=== PATIENT | female | born 1990 | race Caucasian/White ===

== ENCOUNTER 2021-08-13 16:20 | Emergency (ER) | payer OTHER, SELFPAY ==
--- NOTE | ~2021-08-13 | XR_ITS ---
EXAMINATION: RIGHT ANKLE, RIGHT FOOT CLINICAL INFORMATION: Pain after fall COMPARISON: None TECHNIQUE: 3 views right foot, 3 views right ankle FINDINGS: The ankle appears normal. No effusion is seen. In the foot, there is a predominantly transverse fracture involving the base of the fifth metatarsal. In addition, there is an avulsion fracture of the lateral base of the fourth metatarsal. It is less likely felt that this is a fragment from the fifth metatarsal. No other fractures seen. XR/XR foot RT min 3V IMPRESSION: Fracture base of the fifth metatarsal and most likely fourth as well.
--- NOTE | ~2021-08-13 | XR_ITS ---
EXAMINATION: RIGHT ANKLE, RIGHT FOOT CLINICAL INFORMATION: Pain after fall COMPARISON: None TECHNIQUE: 3 views right foot, 3 views right ankle FINDINGS: The ankle appears normal. No effusion is seen. In the foot, there is a predominantly transverse fracture involving the base of the fifth metatarsal. In addition, there is an avulsion fracture of the lateral base of the fourth metatarsal. It is less likely felt that this is a fragment from the fifth metatarsal. No other fractures seen. XR/XR ankle RT min 3V IMPRESSION: Fracture base of the fifth metatarsal and most likely fourth as well.
[2021-08-13 17:13] VITALS: BP 128/73; PULSE 82; RESP 16; TEMP 36.7; O2SAT 99; BMI 23.5
--- NOTE | 2021-08-13 18:17 | ED_ITS ---
HPI - Extremity Injury (Lower) General Chief Complaint: Extremity Injury, Lower Stated Complaint: fall Time Seen by Provider: 08/13/21 17:52 Source: patient Mode of arrival: ambulatory Limitations: no limitations History of Present Illness MD complaint: ankle injury, foot injury and fall Onset (ago): day(s) (Since last night) Type of Injury: other (Patient slipped and fell on her buttocks and her ankle/foot twisted someway) Place: work Severity: severe Severity scale (1-10): >10 Relieving factors: nothing Exacerbating factors: weight bearing, movement and palpation Context: fall Associated symptoms: swelling and able to partially bear weight Other symptoms: none Related Data Previous Rx's Medication Instructions Recorded acetaminophen 500 mg tablet 1,000 mg PO QID PRN #14 tab 08/13/21 (Tylenol Extra Strength) ibuprofen 800 mg tablet 800 mg PO Q8H PRN #14 tab 08/13/21 oxycodone 5 mg tablet 5 mg PO Q6H PRN #14 tab 08/13/21 Allergies Allergy/AdvReac Type Severity Reaction Status Date / Time No Known Allergies Allergy Verified 08/13/21 18:18 Review of Systems Review of Systems: Constitutional : No Weight loss, No Fever, No Chills, No Night Sweats, No Fatigue, No Malaise ENT/Mouth : No Hearing loss, No Ear Pain, No Nasal Congestion, No Sinus Pain, No Hoarseness, No sore throat, No Rhinorrhea, No Swallowing Difficulty Eyes: No Eye Pain, No Swelling, No Redness, No Foreign Body, No Discharge, No Vision Changes Cardiovascular : No Chest Pain, No SOB, No Dyspnea on Exertion, No Orthopnea, No Edema, No Palpitations Respiratory : No Cough, No Sputum, No Wheezing, No Smoke Exposure, No Dyspnea Gastrointestinal : No Nausea, No Vomiting, No Diarrhea, No Constipation, No abdominal Pain, No Hematochezia, No Melena Genitourinary : no irregular bleeding, No Dysuria, No Urinary Frequency, No Hematuria, No Urinary Incontinence, No Urgency, No Flank Pain, No Urinary Flow Changes, No Hesitancy Musculoskeletal : + right ankle/foot joint pain, No Myalgias, No Joint Swelling Skin : No Skin Lesions, No rash Neuro : No Weakness, No Numbness, No Paresthesias, No Loss of Consciousness, No Dizziness, No Headache Psych : No Anxiety/Panic, No Depression, No SI/HI/AH/VH, No Social Issues, Heme/Lymph: No Bruising, No Bleeding,No Lymphadenopathy Endocrine : No Polyuria, No Polydipsia, No Temperature Intolerance Yes all other systems are reviewed and are negative [facility] Past Medical History Attestation statement: The following information was validated with the patient. Social History Social History Patient : No Physical Exam Vital Signs: Vital Signs: Last Vital Signs Temp 98.0 F 08/13/21 17:13 Pulse 82 08/13/21 17:13 Resp 16 08/13/21 17:13 BP 128/73 08/13/21 17:13 Pulse Ox 99 08/13/21 17:13 Body Mass Index 23.5 vital signs have been reviewed as normal and appeared to be correct. Blood pressure normal Heart rate normal. Respiration rate normal. Temperature normal. Oxygen saturation normal. Appearance: Alert. Oriented X3. No acute distress. Head: Normal external exam. Normocephalic. Atraumatic. Eyes: PERRLA. EOMI. Conjunctiva and sclera normal. Eyelids normal. ENT: Pharynx normal. Uvula midline. Moist mucous membranes. Neck: Normal inspection. Neck supple. FROM. CVS: Normal heart rate and rhythm. Respiratory: No respiratory distress. Painless inspiration. Skin: Skin warm and dry. Normal skin color. Normal skin turgor. No rashes/lesions/lacerations noted. Extremities: Patient with tenderness palpation to right foot at the 4th and 5th metatarsals with moderate soft tissue swelling and tenderness to palpation. No obvious ligamentous or tendon injury. Achilles tendon is intact. Limping gait due to pain. No lower extremity edema. No calf tenderness is noted. Extremities exhibit normal range of motion and nontender. Neuro: Oriented X 3. No motor deficit. No sensory deficit. Reflexes normal. Normal steady gait. No focal neuro deficits noted. Vascular: + radial pulses/+ 2 distal pedal pulses/+2 dorsalis pedis b/l. Normal cap refill. No cyanosis noted to upper extremity nails and lower extremity toes nails. 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 She denies head injury or loss of consciousness and she is not on any blood thinners. She denies any other injuries complaints or concerns. On exam she has moderate soft tissue swelling and tenderness to palpation and ecchymosis noted. X-ray revealed a 5th metatarsal fracture therefore at this time will place in a splint and ZACKARY Martinez said they will see her in office on and provide crutches and referred to orthopedic and to return if any new or worsening symptoms. Patient understands agrees with this plan. MDM - Extremity Injury (Lower) Medical Records Attestation: I reviewed the patient's medical records. Imaging Data Right foot/ankle x-ray: Attestation: I personally reviewed and interpreted this imaging study as follows: Radiologist's impression: FINDINGS: The ankle appears normal. No effusion is seen. In the foot, there is a predominantly transverse fracture involving the base of the fifth metatarsal. In addition, there is an avulsion fracture of the lateral base of the fourth metatarsal. It is less likely felt that this is a fragment from the fifth metatarsal. No other fractures seen. XR/XR foot RT min 3V IMPRESSION: Fracture base of the fifth metatarsal and most likely fourth as well.? Procedures Orthopedic Splinting/Casting Injury #1: Side: right Lower Extremity Injury Location: ankle and foot Lower Extremity Immobilizer: posterior splint Other Orthopedic Equipment: crutches Discharge Plan Discharge Clinical Impression: Ankle sprain and strain, Closed fracture of fifth metatarsal bone, Closed fracture of fourth metatarsal bone, Work related injury Patient Disposition: Home, Self-Care Instructions: Ankle Sprain (ED), Crutch Instructions (ED), Foot Fracture in Adults (ED), Return to Work Instructions (ED), Splint Care (ED) Prescriptions: New ibuprofen 800 mg tablet 800 mg PO Q8H PRN (Reason: pain) Qty: 14 RF: 0 acetaminophen [Tylenol Extra Strength] 500 mg tablet 1,000 mg PO QID PRN (Reason: fever or pain) Qty: 14 RF: 0 oxycodone 5 mg tablet 5 mg PO Q6H PRN (Reason: pain) Qty: 14 RF: 0 Referrals: Dominick Dennison MD [Physician] - 2 days (Call tomorrow to make an appointment on ) Stand Alone Forms: Work/School Release Print Language: [place]
--- NOTE | 2021-08-13 19:29 | PC.NURSE ---
PT POSTEROR SHORT PLACED TO RIGHT LEG PT AMBULATING WELL WITH CRUTCHES.
== END 2021-08-13 19:37 | disposition home or self-care (01) ==
LOC: HO.ED 18:32
PROVIDERS: Emergency Provider Emergency Medicine; PCP Internal Medicine
DX: S92.351A Displaced fracture of fifth metatarsal bone, right foot, initial encounter for closed fracture (principal); S92.341A Displaced fracture of fourth metatarsal bone, right foot, initial encounter for closed fracture; S93.401A Sprain of unspecified ligament of right ankle, initial encounter; M25.571 Pain in right ankle and joints of right foot; W01.0XXA Fall on same level from slipping, tripping and stumbling without subsequent striking against object, initial encounter; Y93.9 Activity, unspecified; Y92.9 Unspecified place or not applicable; Y99.0 Civilian activity done for income or pay
CPT/HCPCS: 29515; 73610; 73630; 99283; 99284

== ENCOUNTER → 2021-08-15 10:36 | Outpatient (BNVA) | payer OTHER, SELFPAY | PROVIDERS: PCP Internal Medicine; Visit Provider Physician Assistant | DX: S92.351A Displaced fracture of fifth metatarsal bone, right foot, initial encounter for closed fracture (principal); S92.341A Displaced fracture of fourth metatarsal bone, right foot, initial encounter for closed fracture | CPT/HCPCS: 99202 ==

== ENCOUNTER 2021-08-29 08:48 | Outpatient (REF) | payer OTHER, SELFPAY ==
--- NOTE | ~2021-08-29 | XR_ITS ---
EXAMINATION: XR FOOT, RIGHT CLINICAL INFORMATION: Right foot pain, known metatarsal fractures. COMPARISON: 08/31/2021 right foot radiographs. TECHNIQUE: AP, lateral, and oblique views of the right foot. FINDINGS: Again seen is a nondisplaced transverse fracture of the proximal metadiaphysis of the fifth metatarsal. There is mild increased distraction and angulation. A minimally displaced transverse fracture at the lateral base of the adjacent fourth metatarsal is again seen as well without significant change. The remainder the digits are intact. The tarsal bones are normally aligned. The soft tissues are unremarkable. XR/XR foot RT min 3V IMPRESSION: 1. Minimal interval increased distraction and angulation of the proximal fifth metatarsal fracture. 2. No significant change in minimally displaced oblique fracture of the lateral base of the fourth metatarsal.
== END 2021-08-29 08:49 | disposition home or self-care (01) ==
LOC: HO.HOSX 08:48
PROVIDERS: Visit Provider Physician Assistant
DX: S92.341A Displaced fracture of fourth metatarsal bone, right foot, initial encounter for closed fracture (principal); S92.351A Displaced fracture of fifth metatarsal bone, right foot, initial encounter for closed fracture
CPT/HCPCS: 73630; 99212

== ENCOUNTER 2021-09-20 07:09 | Outpatient (REF) | payer OTHER, SELFPAY ==
--- NOTE | ~2021-09-20 | XR_ITS ---
EXAMINATION: XR FOOT, RIGHT CLINICAL INFORMATION: Fracture followup. COMPARISON: 08/29/2021 TECHNIQUE: AP, lateral, and oblique views of the right foot. FINDINGS: Stable alignment with no definite osseous bridging of the fractures at the base of the 5th and 4th metatarsals. There has been some interval cortical demineralization along the metatarsals likely representing disuse osteopenia. XR/XR foot RT min 3V IMPRESSION: No change in the appearance of the fractures of the 4th and 5th metatarsal bases. 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
== END 2021-09-20 07:10 | disposition home or self-care (01) ==
LOC: HO.HOSX 07:09
PROVIDERS: Visit Provider Physician Assistant
DX: S92.341D Displaced fracture of fourth metatarsal bone, right foot, subsequent encounter for fracture with routine healing (principal); S92.351D Displaced fracture of fifth metatarsal bone, right foot, subsequent encounter for fracture with routine healing
CPT/HCPCS: 73630; 99212

== ENCOUNTER 2021-11-04 07:54 | Outpatient (REF) | payer OTHER, SELFPAY ==
--- NOTE | ~2021-11-04 | XR_ITS ---
EXAMINATION: XR foot RT min 3V CLINICAL INFORMATION: Pain COMPARISON: 09/20/2021 foot radiographs TECHNIQUE: 3 views of the foot XR/XR foot RT min 3V FINDINGS/IMPRESSION: Redemonstration of the fractures of the base of the fourth and fifth metacarpals in unchanged alignment, with decreased conspicuity of the fracture lines and periosteal reaction which may reflect a degree of healing. No bridging bony callus formation Joint spaces are maintained. Increased demineralization again seen which may suggest disuse osteopenia. No joint effusion. Soft tissues are unremarkable.
== END 2021-11-04 07:55 | disposition home or self-care (01) ==
LOC: HO.HOSX 07:54
PROVIDERS: Visit Provider Physician Assistant
DX: M79.673 Pain in unspecified foot (principal); S92.341A Displaced fracture of fourth metatarsal bone, right foot, initial encounter for closed fracture; S92.351A Displaced fracture of fifth metatarsal bone, right foot, initial encounter for closed fracture; X58.XXXA Exposure to other specified factors, initial encounter; Y93.9 Activity, unspecified; Y92.9 Unspecified place or not applicable; Y99.8 Other external cause status
CPT/HCPCS: 73630; 99212

== ENCOUNTER 2021-12-09 08:04 | Outpatient (REF) | payer OTHER, SELFPAY ==
--- NOTE | ~2021-12-09 | XR_ITS ---
EXAMINATION: XR FOOT, RIGHT CLINICAL INFORMATION: Pain. COMPARISON: Prior x-rays latest 11/04/2021 TECHNIQUE: AP, lateral, and oblique views of the right foot. FINDINGS/findings: Redemonstrated are fractures of the base of the fourth and fifth metacarpals. Stable position and alignment. On the AP projection, there is further decrease in conspicuity of fracture planes. No new acute fractures are seen.
== END 2021-12-09 08:05 | disposition home or self-care (01) ==
LOC: HO.HOSX 08:04
PROVIDERS: Visit Provider Physician Assistant
DX: S92.341D Displaced fracture of fourth metatarsal bone, right foot, subsequent encounter for fracture with routine healing (principal); S92.351D Displaced fracture of fifth metatarsal bone, right foot, subsequent encounter for fracture with routine healing
CPT/HCPCS: 73630; 99212

== ENCOUNTER 2024-10-20 12:55 | Outpatient (REF) | payer OTHER, SELFPAY ==
[2024-10-20 14:20] LABS: OBS Int Ctl Valid YES; OBS1 NEGATIVE (NEGATIVE); OBS2 NEGATIVE (NEGATIVE); OBS3 NEGATIVE (NEGATIVE)
[2024-10-20 14:21] LABS: OBS Lot 50422
[2024-10-27 19:22] LABS: Calprotectin, Fecal <5 mcg/g
== END 2024-10-20 12:56 | disposition home or self-care (01) ==
LOC: HO.CHCLNP 12:55
PROVIDERS: Visit Provider Family Medicine
DX: K62.5 Hemorrhage of anus and rectum (principal)
CPT/HCPCS: 82270; 83993

== ENCOUNTER 2025-02-08 08:52 | Outpatient (AMB) | payer MEDICAID, SELFPAY ==
[2025-02-08 09:03] VITALS: BP 127/74; PULSE 95; O2SAT 100; BMI 25.6
--- NOTE | 2025-02-08 09:03 | A.OFFVIS_ITS ---
Vital Signs 3 02/08/25 09:03 Height 5 ft 7 in Weight 163 lb 9.328 oz BMI 25.6 BP 127/74 Blood Pressure Location Lt brachial Position Sitting Pulse 95 Pulse Source Pulse Oximeter Pulse Oximetry (%) 100 Oxygen Delivery Method Room Air Intake Visit Reasons: consult rectal bleeding Intake Note: Pt presents to the office today for c/o rectal bleeding. Pt states when she passes a stool she would she bright red blood in the toilet. Pt denies any N/V/D. Allergies No Known Allergies Allergy (Verified 02/08/25 09:05) HPI HPI consult rectal bleeding: Details: 34-year-old female here for initial evaluation of rectal bleeding. She is referred by [facility]. PMX Genital herpes Right foot metatarsal fracture * SURGICAL HISTORY Tonsillectomy * ALLERGIES: NKDA * NICO LABS: Laboratory Tests 10/17/24 10/20/24 15:45 11:50 WBC 7.4 Hgb 13.0 Hct 38.0 Plt Count 308 Estimated GFR > 60 Total Bilirubin 0.5 AST 16 ALT 11 Alkaline Phosphatase 59 Stool Occult Blood NEGATIVE TODAY'S VISIT She had sustained rectal bleeding a 2 week period about a year ago, and has had some RB every 2-3 mos. No CIC or diarrhea, no pain, no fevers, no alarm sx. She has known hemorrhoids. No anes or sed problems. She denies any cardiac problems or respiratory problems. No ID problems except genital herpes. There is no known FHX of crc or polyps. [facility] Surgical History Hx of tonsillectomy Social History (System 12/07/24 @ 15:34 by Madalyn Song) Alcohol intake: current Alcohol intake frequency: holidays/special occasions only Patient Tobacco Use Status: Never used Tobacco Current occupational status: employed Current occupation: visual design lead Gender identity: Female Review of Systems Const Denies fatigue, Denies fever(s), Denies night sweats, Denies poor appetite and Denies weight loss ENT Reports Normal hearing present, Denies dental pain, Denies dysphagia, Denies hearing loss, Denies mouth pain, Denies odynophagia, Denies throat swelling, Denies tongue swelling and Reports other (Dentition adequate) Card Reports no additional complaints Resp Reports no additional complaints GI Details: Denies abdominal pain, Denies melena, Denies bloating, Reports hematochezia, Denies constipation, Denies GI cramping, Denies dysphagia, Denies excessive flatus, Denies early satiety, Denies heartburn, Denies diarrhea, Denies nausea, Denies odynophagia, Denies vomiting and Denies hematemesis Skin/Breast Denies pruritus, Denies lesions, Denies rash and Denies jaundice Neuro Reports Normal hearing present and Denies Abnormal speech present Endo Denies fatigue Aller/Immun Denies throat swelling and Denies tongue swelling Physical Exam Const General: cooperative, no acute distress, well developed and well groomed Nutritional Appearance: average body habitus and well nourished Orientation/consciousness: oriented to person, oriented to place and oriented to time Limitations: No language barrier HEENT Head: Yes normocephalic and Yes atraumatic Eyes General: appearance normal, both eyes and all related structures Pupils: Equal, round and reactive pupils present Neck Neck: Yes normal visual inspection and Yes no lymphadenopathy Thyroid: Thyroid normal Resp Effort & Inspection: normal respiratory effort and able to speak in complete sentences Auscultation: clear to auscultation bilaterally Cardio Rate: regular rate Rhythm: regular rhythm Heart sounds: Normal, physiologic split S2 sound present Peripheral pulses: radial pulses present and posterior tibial pulses present GI Inspection: No distended and No Abdominal panniculus present Palpation (GI): Soft to palpation, nontender, no guarding, not rigid and No hepatosplenomegaly present Percussion: Yes normal to percussion Auscultation: normal bowel sounds Rectal Exam - Female: deferred Abdomen image: 2 1. BB ring Skin General skin exam: no rashes or lesions noted, turgor normal, skin not dry, no jaundice, No spider nevi and no striae Rashes: no rashes Nails: normal Neuro General: oriented to person, oriented to place and oriented to time Cranial nerves: Yes Equal, round and reactive pupils present and Yes Normal hearing present Speech: No Abnormal speech present Extrem General: Yes normal to inspection, No clubbing, No cyanosis and No edema Psych Appearance: grossly normal and well kempt Mental Status: mental status grossly normal Speech and movement: Normal speech and movement present Affect: normal affect Attitude: cooperative Thought process: Normal thought process present and not confabulating Thought content: Normal thought content present Insight: Good insight present (Psych) Judgement: Good judgement present (Psych) Assessment & Plan Assessment & Plan (1) Pre-op examination: Code(s): Z01.818 - Encounter for other preprocedural examination Category: Medical (2) Rectal bleeding: Code(s): K62.5 - Hemorrhage of anus and rectum Category: Medical (3) Hemorrhoids: Code(s): K64.9 - Unspecified hemorrhoids Category: Medical Plan She had sustained rectal bleeding a 2 week period about a year ago, and has had some RB every 2-3 mos. No CIC or diarrhea, no pain, no fevers, no alarm sx. She has known hemorrhoids. No anes or sed problems. She denies any cardiac problems or respiratory problems. No ID problems except genital herpes. There is no known FHX of crc or polyps. Coding Level of Care Code New Pt Level 3 (68168) Diagnoses Pre-op examination Z01.818 Rectal bleeding K62.5 Hemorrhoids K64.9
--- OUTSIDE RECORDS SUMMARY | 2025-02-08 09:15 | XMS_ITS | Clinical Summary ---
Author Organization [employer] Address [address] [facility] [address] [place] [address] Care Team Providers Care Core Winder Name Role Phone Anh Saab MD Primary Care Provider [phone] Allergies No known active allergies Medications minoxidil (Loniten) 2.5 MG tablet Take 0.5 tablets by mouth Once per day. 09/11/20 24 Active norethindrone ac-eth estradio (Loestrin) 1.5-30 MG-MCG tablet tablet Take 1 tablet by mouth Once per day. Active naltrexone (Depade) 25 mg split tablet Take 25 mg by mouth 2 times daily. Active topiramate (Topamax) 25 MG tablet Take 25 mg by mouth at bedtime. Weight management Active buPROPion XL (Wellbutrin XL) 150 MG 24 hr tabletIndicati ons:Anxiety TAKE 1 TABLET (150 MG) BY MOUTH ONCE PER DAY. DO NOT CRUSH, CHEW, OR SPLIT. 90 tablet 01/25/20 25 026 Active buPROPion XL (Wellbutrin XL) 150 MG 24 hr tabletIndicati ons:Anxiety Take 1 tablet (150 mg) by mouth Once per day. Do not crush, chew, or split. 30 tablet 1 12/30/19 25 025 Discontinued Active Problems Problem Noted Date Diagnosed Date Rectal bleeding 10/17/2024 Assessment & Plan (10/17/2024 3:33 PM EST): Ordering lab work for and referral to GI for further evaluation. Encounters Date Type Department Care Team Description 01/21/2025 Refill [facility] [address] [place] [address] Milla Lucero, Anxiety 01/16/2025 10:15 AM EDT Clinical Support [facility] [address] [place] [address] Yolanda Shaw, MYRA Encounter for immunization 01/16/2025 Travel 12/29/2024 Telephone [facility] [address] [place] [address] Milla Lucero, DO Med Refill 12/29/2024 Telephone [facility] [address] [place] [address] Milla Lucero, DO Med Refill 12/15/2024 1:15 PM EST Nurse Only [facility] [address] [place] [address] Yolanda Shaw RN Encounter for immunization 12/15/2024 Telephone [facility] [address] [place] [address] Anh Saab MD Medication Question (Follow up to answer medication question pt had during nurse visit) 12/15/2024 Travel from Last 3 Months Immunizations Name Administration Dates Next Due Hep B, adult 01/16/2025,12/15/2024 Tdap 02/09/2023 Family History Medical History Relation Name Comments Anxiety disorder Father Hypertension Father Kidney disease Father Anxiety disorder Mother Depression Mother Diabetes Mother Heart disease Mother Relation Name Status Comments Father Mother Social History Tobacco Use Types Packs/Day Years Used Date Smoking Tobacco: Never Passive Smoke Exposure: Never Smokeless Tobacco: Never Tobacco Cessation:Counseling Given: Not Answered Alcohol Use Standard Drinks/Week Comments Yes 0 (1 standard drink = 0.6 oz pur e alcohol) Social/iiregular Depression Answer Date Recorded Patient Health Questionnaire-9 Score 2 10/17/2024 Patient Health Questionnaire-9 Score 2 10/17/2024 Last PHQ-9: Questionnaire Data Not on file 0 10/17/2024 Housing Stability Answer Date Recorded What is your housing situation today? I have juliane pal 10/07/[address] you li ve. Do you have problems with any of the following? None of the above 10/07/2024 Food Insecurity Answer Date Recorded Within the past 12 months, y ou worried that your food would run out before you got money to buy more: Never True 10/07/2024 Within the past 12 months,th e food you bought just didn't last and you didn't have enough money to get more: Never True Transportation Answer Date Recorded In the past 12 months, has l ack of transportation kept you from medical appts, meetings, work or from getting things needed for daily living? No 10/07/2024 Utilities Answer Date Recorded In the past 12 months, has t he electric, gas, oil or water company threatened to shut off services in your home? No 10/07/2024 Depression Answer Date Recorded Patient Health Questionnaire-2 Score 1 10/17/2024 Internet Access Answer Date Recorded Internet Access Q1 Yes 10/07/2024 Internet Access Q2 Not on file 10/07/2024 Comments No Sex and Gender Information Value Date Recorded Sex Assigned at Female 04/20/2024 11:21 AM EDT Legal Sex Female 11:10 AM EDT Gender Identity Female 04/20/2024 11:21 AM EDT Sexual Orientation Straight 10/17/2024 3: 59 PM EST Last Filed Vital Signs Vital Sign Reading Time Taken Comments Blood Pressure 124/84 10/17/2024 2:41 PM EST Pulse 78 10/17/2024 2:41 PM EST Temperature 36.7 ??C (98.1 ??F) 12/15/2024 1:20 PM ES T Respiratory Rate 20 10/17/2024 2:41 PM EST Oxygen Saturation 98% 10/17/2024 2:41 PM EST Inhaled Oxygen Concentration - - Weight 74.2 kg (163 lb 9.6 oz) 10/17/2024 2:41 P M EST Height 169 cm (5' 6.54 ) 10/17/2024 2:41 PM EST Body Mass Index 25.98 10/17/2024 2:41 PM EST Plan of Treatment Upcoming Encounters Date Type Department Care Team (Late st Contact Info) Description 03/20/2025 10:15 AM EDT Clinical Support [facility] [address] [place] [address] Health Maintenance Due Date Last Done Comments Family Planning (PISQ) 2006 Pap Smear 2012 Cervical Cancer Screening 2021 HPV/Cotest 2021 Influenza Vaccine (#1) 2025 Postp oned from 06/12/2024 (Patient Refused) Hepatitis B Vaccines (3 of 3 - 19+ 3-dose series) 06/17/2025 01/16/2025, 12/15/2024 SDOH Screening 10/07/2025 10/07/2024 Alcohol/Substance Use Screening 10/17/2025 10/17/2024 COVID-19 Vaccine (1 - 2023-2 5 season) 2025 Postponed from 06/12 (Patient Refused) Depression Screening 10/17/2025 10/17/2024, 10/17/2024 Tobacco Screening 10/17/2025 10/17/2024 DTaP/Tdap/Td Vaccines (2 - T d or Tdap) 02/09/2033 02/09/2023 Zoster Vaccines (1 of 2) 2041 RSV Patients and Patients Aged 60 years or older (1 - 1-dose 75+ series) 2066 HIV Screening Completed 10/17/2024 Hepatitis C Screening Completed 10/17/2024 HIB Vaccines Aged Out No longer eligi ble based on patient's age to complete this topic HPV Vaccines Aged Out No longer eligi ble based on patient's age to complete this topic Hepatitis A Vaccines Aged Out No long er eligible based on patient's age to complete this topic IPV Vaccines Aged Out No longer eligi ble based on patient's age to complete this topic Meningococcal Vaccine Aged Out No duncan gretta eligible based on patient's age to complete this topic Pneumococcal Vaccine: Pediatrics (0 to 5 Years) and At-Risk Patients (6 to 49) Years) Aged Out No longer eligible b ased on patient's age to complete this topic RSV under 20 months Aged Out No longe r eligible based on patient's age to complete this topic Rotavirus Vaccines Aged Out No longer eligible based on patient's age to complete this topic Procedures Procedure Name Priority Date/Time Associated Diagnosis Comments HEPATITIS C AB W/REFL TO HCV RNA, QN, PCR Routine 10/17/2024 3:45 PM EST Screening due HIV 1/2 ANTIGEN/ANTIBODY, FOURTH GENERATION W/RFL Routine 10/17/2024 3:45 PM EST Screening due from Last 3 Months or Most Recently Relevant to Health Maintenance Results * Hepatitis C Antibody with Reflex to HCV, RNA, Quantitative, Real-Time PCR (10/17/2024 3:45 PM EST) Pathologist [facility] Hepatitis C Antibody Nonreactive Nonreactive [facility] Comment:Antibodies to HCV no t detected; does not exclude early acuteHCV infection. Blood Venous blood specimen / Unknown 10/17/2024 3:45 PM EST 10/17/2024 5:35 PM EST Anh Saab MD LAB BLOOD ORDERABLES Final Re sult Performing Organization Address [facility] Co de Phone Number [facility] [address] [place] [phone] * HIV-1/2 Antigen and Antibodies, Fourth Generation, with Reflexes (10/17/2024 3:45 PM EST) Pathologist [facility] HIV AB/AG Nonreactive Nonreactive [facility] Comment:HIV-1 p24 Ag and/or HIV-1/HIV-2 Ab not detected.A test result that is nonreactive does not exclude thepossibility of exposure to or infection with HIV-1 and/orHIV-2. Nonreactive results in this assay for individualswith prior exposure to HIV-1 and/or HIV-2 may be due toantigen and antibody levels that are below the limit ofdetection of this assay.The [employer] HIV Ag/Ab Combo assay result andsupplemental assay results should be interpreted inconjunction with the patient's clinical presentation,history and other laboratory results. If the results areinconsistent with clinical evidence, additional testing issuggested to confirm the result. Blood Venous blood specimen / Unknown 10/17/2024 3:45 PM EST 10/17/2024 5:35 PM EST Anh Saab MD LAB BLOOD ORDERABLES Final Re sult Performing Organization Address City/[facility] Co de Phone Number [facility] [address] [place] [phone] from Last 3 Months or Most Recently Relevant to Health Maintenance [facility] Care Teams Core Winder Relationship Specialty Start Date End Date Anh Saab MD [address] [place] [phone] PCP - General Family Medicine 10/17/24
== END 2025-02-08 09:27 | disposition home or self-care (01) ==
LOC: HO.HGI 08:53
PROVIDERS: PCP Internal Medicine; Visit Provider Nurse Practitioner
DX: K62.5 Hemorrhage of anus and rectum (principal); K64.9 Unspecified hemorrhoids
CPT/HCPCS: 99203

== ENCOUNTER → 2025-02-08 08:52 | Outpatient (BNVA) | payer MEDICAID, SELFPAY | PROVIDERS: PCP Internal Medicine; Visit Provider Nurse Practitioner | DX: Z01.818 Encounter for other preprocedural examination (principal); K62.5 Hemorrhage of anus and rectum; K64.9 Unspecified hemorrhoids | CPT/HCPCS: 99212 ==

== ENCOUNTER 2025-06-20 14:21 | Outpatient (REF) | payer MEDICAID, SELFPAY ==
--- OUTSIDE RECORDS SUMMARY | 2025-06-20 11:20 | XMS_ITS | Encounter Summary ---
Author Organization [employer] Address [address] [place] [address] Care Team Providers Care Case Manager Name Role Phone Anh Saab MD Primary Care Provider [phone] Reason for Visit * Reason Comments Cervical Cancer Screening Encounter Details Date Type Department Care Team (Latest Contact Info) Description 06/20/2025 11:20 AM EDT Procedure Visit [facility] MED & PEDS [address] [place], [place] [phone] Anh Saab MD [address] [place], [place] [phone] Cervical cancer screening (Primary Dx) Social History Tobacco Use Types Packs/Day Years Used Date Smoking Tobacco: Never Passive Smoke Exposure: Never Smokeless Tobacco: Never Alcohol Use Standard Drinks/Week Comments Yes 0 (1 standard drink = 0.6 oz pur e alcohol) Social/iiregular Depression Answer Date Recorded Patient Health Questionnaire-9 Score 2 06/05/2025 Patient Health Questionnaire-9 Score 2 06/05/2025 Last PHQ-9: Questionnaire Data Not on file 0 06/05/2025 Housing Stability Answer Date Recorded What is [...] Answer Date Recorded Patient Health Questionnaire-2 Score 2 06/05/2025 Internet Access Answer Date Recorded Internet Access Q1 Yes 10/07/2024 Internet Access Q2 Not on file 10/07/2024 Comments No Sex and Gender Information Value Date Recorded Sex Assigned at Female 04/20/2024 11:21 AM EDT Legal Sex Female 11:10 AM EDT Gender Identity Female 04/20/2024 11:21 AM EDT Sexual Orientation Straight 10/17/2024 3: 59 PM EST documented as of this encounter Last Filed Vital Signs Vital Sign Reading Time Taken Comments Blood Pressure 122/77 06/20/2025 11:29 AM EDT Pulse 78 06/20/2025 11:29 AM EDT Temperature 36.9 C (98.4 F) 06/20/2025 11:29 AM EDT Respiratory Rate 20 06/20/2025 11:29 AM EDT Oxygen Saturation 99% 06/20/2025 11:29 AM EDT Inhaled Oxygen Concentration - - Weight 69.4 kg (153 lb) 06/20/2025 11:29 AM EDT Height 169 cm (5' 6.54 ) 06/20/2025 11:29 AM EDT Body Mass Index 24.3 06/20/2025 11:29 AM EDT documented in this encounter Progress Notes * Anh Saab MD - 06/20/2025 11:20 AM EDT Images from the original note were not included. Subjective Patient ID: Gabbie Reis is a 34 y.o. female who presents for Cervical Cancer Screening. 34 y.o. female here for annual well woman preventive exam. LMP: Patient's last menstrual period was 06/01/2025 (exact date). Sexual activity: Social History Substance and Sexual Activity Sexual activity: Yes Partners: Male control/protection: OCP intention: BC method: Smoking hx: Tobacco Use: Low Risk (06/20/2025) Tobacco Smoking Tobacco Use: Never Smokeless Tobacco Use: Never Passive Exposure: Never Alcohol use hx: Social History Substance and Sexual Activity Alcohol use: Yes Comment: Social/iiregular OBHx: # 1 - Date: None, Sex: None, Weight: None, GA: None, Type: None, Apgar1: None, Apgar5: None, Living: None, Comments: None # 2 - Date: None, Sex: None, Weight: None, GA: None, Type: None, Apgar1: None, Apgar5: None, Living: None, Comments: None IPV: Denies IPV Reviewed family hx Review of patient's family history indicates: Problem: Depression Relation: Mother Name: Age of Onset: (Not Specified) Problem: Anxiety disorder Relation: Mother Name: Age of Onset: (Not Specified) Problem: Diabetes Relation: Mother Name: Age of Onset: (Not Specified) Problem: Heart disease Relation: Mother Name: Age of Onset: (Not Specified) Problem: Hypertension Relation: Father Name: Age of Onset: (Not Specified) Problem: Kidney disease Relation: Father Name: Age of Onset: (Not Specified) Problem: Anxiety disorder Relation: Father Name: Age of Onset: (Not Specified) Health Maintenance: No results found for: HMPAP , HMMAMMO , HMCOLON Review of Systems Constitutional: Negative for appetite change, fatigue and fever. HENT: Negative for congestion, postnasal drip and rhinorrhea. Eyes: Negative for discharge and redness. Respiratory: Negative for apnea, cough, chest tightness and shortness of breath. Cardiovascular: Negative for chest pain. Gastrointestinal: Negative for abdominal pain. Endocrine: Negative for polyphagia. Genitourinary: Negative for difficulty urinating, dysuria and urgency. Musculoskeletal: Negative for arthralgias. Neurological: Negative for dizziness, light-headedness, numbness and headaches. Hematological: Negative for adenopathy. Does not bruise/bleed easily. Objective 10/17/2024 2:41 PM 12/15/2024 1:20 PM 04/07/2025 10:03 AM 04/07/2025 10:35 AM 06/05/2025 1:46 PM 06/20/2025 11:29 AM Vitals Systolic 124 139 118 136 122 Diastolic 84 84 80 86 77 Heart Rate 78 88 64 78 Temp 97.4 ??F (36.3 ??C) 98.1 ??F (36.7 ??C) 98.2 ??F (36.8 ??C) 98.2 ??F (36.8 ??C) 98.4 ??F (36.9??C) Resp 20 20 20 20 Height (in) 5' 6.54 (1.69 m) 5' 6.54 (1.69 m) 5' 7.72 (1.72 m) 5' 6.54 (1.69 m) Weight (lb) 163.6 159 152.6 153 BMI 25.98 kg/m2 25.25 kg/m2 23.4 kg/m2 24.3 kg/m2 BSA (m2) 1.87 m2 1.84 m2 1.82 m2 1.8 m2 Visit Report Report Report Report Report Physical Exam Vitals reviewed. Exam conducted with a tool filer hand present. HENT: Head: Normocephalic and atraumatic. Pulmonary: Effort: Pulmonary effort is normal. Chest: Chest wall: No deformity, tenderness or crepitus. Breasts: Breasts are symmetrical. Right: Normal. No inverted nipple, mass, nipple discharge, skin change or tenderness. Left: Normal. No inverted nipple, mass, nipple discharge, skin change or tenderness. Genitourinary: Urethra: No prolapse. Vagina: Normal. Cervix: Normal. Rectum: Normal. Comments: Ectropion Musculoskeletal: Cervical back: Normal range of motion. Lymphadenopathy: Upper Body: Right upper body: No supraclavicular, axillary or pectoral adenopathy. Left upper body: No supraclavicular, axillary or pectoral adenopathy. Psychiatric: Mood and Affect: Mood normal. Assessment/Plan Problem List Items Addressed This Visit Cervical cancer screening - Primary 34 y.o. here for cervical cancer screening. Will continue monitoring following ASCCP guidelines. Relevant Orders Pap Smear HPV High Risk with Reflex to Subtypes documented in this encounter Miscellaneous Notes * Assessment & Plan Note - Anh Saab MD - 06/20/2025 12:09 PM EDT Associated Problem(s): Cervical cancer screening 34 y.o. here for cervical cancer screening. Will continue monitoring following ASCCP guidelines. documented in this encounter Plan of Treatment Scheduled Orders Name Type Priority Associated Diagnoses Orde r Schedule Pap Smear Pathology and Cytology Routine Cervical cancer screening Ordered: 06/20/2025 HPV High Risk with Reflex to Subtypes Lab Routine Cervical cancer screening Ordered: 06/20/2025 documented as of this encounter Visit Diagnoses Diagnosis Cervical cancer screening- Primary Screening for malignant neoplasm of the cervix documented in this encounter Additional Health Concerns Assessment Noted Time PHQ-9 Depression Total Score: 2 06/05/20 2:24 PM EDT documented as of this encounter Care Teams Case Manager Relationship Specialty Start Date End Date Anh Saab MD [address] [place] [id number] PCP - General Family Medicine 10/17/24 documented as of this encounter
--- OUTSIDE RECORDS SUMMARY | 2025-06-20 16:56 | XMS_ITS | Encounter Summary ---
Author Organization [employer] Address [address] [place] [address] Care Team Providers Care Wrapping Clerk Name Role Phone Anh Saab MD Primary Care Provider [phone] Encounter Details Date Type Department Care Team ([facility] st Contact Info) Description 06/19/2025 Telephone [facility] MED [facility] PEDS [address] [place], [place] [phone] Anh Saab MD [address] [place] [address] Social History Tobacco Use Types Packs/Day Years [...] 11:21 AM EDT Sexual Orientation Straight 10/17/2024 3 :59 PM EST documented as of this encounter Miscellaneous Notes * Telephone Encounter - Bernie Ibanez [place] - 06/19/2025 11:52 AM EDT ERROR documented in this encounter Plan of Treatment Not on file documented as of this encounter Visit Diagnoses Not on filedocumented in this encounter Additional Health Concerns Assessment Noted Time PHQ-9 Depression Total Score: 2 06/05/20 25 2:24 PM EDT documented as of this encounter Care Teams Wrapping Clerk Relationship Specialty Start Date End Date Ahn Saab MD [address] [place] [address] PCP - General Family Medicine 10/17/24 documented as of this encounter
--- OUTSIDE RECORDS SUMMARY | 2025-06-20 16:56 | XMS_ITS | Clinical Summary ---
Author Organization [employer] Address [address] [facility] 7[address] [place] [address] Care Team Providers Care Dialysis Tech Name Role Phone Anh Saab MD Primary Care Provider [phone] Allergies No known active allergies Medications minoxidil (Loniten) 2.5 MG tablet Take 0.5 tablets by mouth Once per day. 09/11/20 24 Active GaviLyte-G 236 g solution PLEASE SEE ATTACHED FOR DETAILED DIRECTIONS 02/09/20 25 Active Bisacodyl EC 5 MG EC tablet TAKE 2 TABLETS BY MOUTH AT BEDTIME FOR 2 DAYS 02/09/20 25 Active cyanocobalamin (Vitamin B-12) 1000 MCG tablet Take 1 tablet (1,000 mcg) by mouth Once per day. 90 tablet 1 04/07/20 25 Active topiramate (Topamax) 50 MG tablet Take 1 tablet (50 mg) by mouth at bedtime. 90 tablet 1 04/07/20 25 Active naltrexone (Depade) 50 MG tablet Take 1 tablet (50 mg) by mouth Once per day. 90 tablet 1 04/07/20 25 Active metFORMIN XR (Glucophage-XR ) 500 MG 24 hr tablet Take 1 tablet (500 mg) by mouth with evening meal. Do not crush, chew, or split. 30 tablet 11 04/17/20 25 026 Active propranolol (Inderal) 10 MG tablet TAKE 1 TABLET BY MOUTH IF NEEDED IN THE MORNING AND AT BEDTIME FOR ANXIETY. 180 tablet 1 05/01/20 25 Active norethindrone- ethinyl estradiol (Junel FE 10/31) 1-20 MG-MCG tablet Take 1 tablet by mouth Once per day. 28 tablet 12 06/05/20 25 026 Active buPROPion XL (Wellbutrin XL) 150 MG 24 hr tablet Take 1 tablet (150 mg) by mouth Once per day. Do not crush, chew, or split. 90 tablet 1 06/05/20 Active norethindrone ac-eth estradio (Loestrin) 1.5-30 MG-MCG tablet tablet Take 1 tablet by mouth Once per day. 025 Discontinued buPROPion SR (Wellbutrin SR) 150 MG 12 hr tablet Take 1 tablet (150 mg) by mouth 2 times daily. Do not crush, chew, or split. 180 tablet 1 04/07/20 025 Discontinued(Th erapy completed) Active Problems Problem Noted Date Diagnosed Date Cervical cancer screening 06/20/2025 Assessment & Plan (06/20/2025 12:09 PM EDT): 34 y.o. here for cervical cancer screening. Will continue monitoring following ASCCP guidelines. Overweight (BMI 25.0-29.9) 04/07/2025 Assessment & Plan (04/07/2025 2:47 PM EDT): Patient had been started on medication management of weight, currently stable. Will need cont med to avoid rebound of weight. Anxiety 04/07/2025 Assessment & Plan (04/07/2025 2:48 PM EDT): Kiron of propranolol Rectal bleeding 10/17/2024 Assessment & Plan (10/17/2024 3:33 PM EST): Ordering lab work for and referral to GI for further evaluation. Encounters Date Type Department Care Team Description 06/20/2025 11:20 AM EDT Procedure Visit [facility] [address] [facility] [place] [address] Anh Saab MD Cervical cancer screening (Primary Dx) 06/20/2025 Travel 06/19/2025 Telephone [facility] [address] [facility] [place] [address] Anh Saab MD 06/05/2025 1:45 PM EDT Office Visit [facility] [address] [facility] [place] [address] Anh Saab MD Overweight (BMI 25.0-29.9) (Primary Dx); Encounter for initial prescription of contraceptive pills 06/05/2025 Travel 05/26/2025 Patient Outreach [facility] [address] [place] [phone] Anh Saab MD Pre-visit Planning (SDOH screening negative and Tobacco screening negative) 05/25/2025 Telephone [facility] [address] [place] [address] Anh Saab MD chart prep 04/29/2025 Refill [facility] [address] [place] [address] Anh Saab MD 04/17/2025 Telephone [facility] [address] [place] [address] Anh Saab MD Prior Authorization 04/17/2025 Orders Only [facility] [address] [place] [address] Bassem Rosenbaum MD 04/07/2025 9:45 AM EDT Office Visit [facility] [address] [place] [address] Anh Saab MD Encounter for immunization (Primary Dx); Overweight (BMI 25.0-29.9); Anxiety 04/07/2025 Travel 04/06/2025 Travel 04/04/2025 Telephone [facility] [address] [place] [address] Anh Saab MD chart prep 03/31/2025 Patient Outreach [facility] [address] [place] [phone] Anh aSab MD Pre-visit Planning (Pre visit planning LVM ) 03/20/2025 Travel from Last 3 Months Immunizations Immunization Administration Dates Next Due Hep B, adult 04/07/2025,01/16/2025,12/15/2024 Tdap 02/09/2023 Family History Medical History Relation [...] is your housing situation today? I have julianejerrod pal 10/07/[address] you [...] Mass Index 24.3 06/20/2025 11:29 AM EDT Plan of Treatment Health Maintenance Due Date Last Done Comments Family Planning (PISQ) 2006 HPV Vaccines (1 - 3-dose series) 2006 Pap Smear 2012 Cervical Cancer Screening 2021 HPV/Cotest 2021 COVID-19 Vaccine ( - 2023-2 5 season) 2025 Influenza Vaccine (#1) 2025 Alcohol/Substance Use Screening 10/17/2025 10/17/2024 Disability Screening 04/06/2026 04/06/2025 SDOH Screening 05/26/2026 05/26/2025 Depression Screening 06/05/2026 06/05/2025, 06/05/2025 Tobacco Screening 06/20/2026 06/20/2025 DTaP/Tdap/Td Vaccines (2 - T d or Tdap) 02/09/2033 02/09/2023 Zoster Vaccines (1 of 2) 2041 RSV Patients and Patients Aged 60 years or older (1 - 1-dose 75+ series) 2066 HIV Screening Completed 10/17/2024 Hepatitis C Screening Completed 10/17/2024 Hepatitis B Vaccines Completed 04/07/2025, 01/16/2025, 12/15/2024 HIB Vaccines Aged Out No longer eligi ble based on patient's age to complete this topic Hepatitis A Vaccines Aged Out No long er eligible based on patient's age to complete this topic IPV Vaccines Aged Out No longer eligi ble based on patient's age to complete this topic Meningococcal B Vaccine Aged Out No l onger eligible based on patient's age to complete this topic Meningococcal Vaccine Aged Out No duncan gretta eligible based on patient's age to complete this topic Pneumococcal Vaccine: Pediatrics (0 to 5 Years) and At-Risk Patients (6 to 49) Years Aged Out No longer eligible b ased on patient's age to complete this topic RSV under 20 months Aged Out No longe r eligible based on patient's age to complete this topic Rotavirus Vaccines Aged Out No longer eligible based on patient's age to complete this topic Procedures Procedure Name Priority Date/Time Associated Diagnosis Comments POCT , URINE Routine 06/05/2025 4:03 PM EDT Encounter for initial prescription of contraceptive pills HEPATITIS C AB W/REFL TO HCV RNA, QN, PCR Routine 10/17/2024 3:45 PM EST Screening due HIV 1/2 ANTIGEN/ANTIBODY, FOURTH GENERATION W/RFL Routine 10/17/2024 3:45 PM EST Screening due from Last 3 Months or Most Recently Relevant to Health Maintenance Results * POCT Urine (06/05/2025 4:03 PM EDT) Preg Test, Ur Negative Negative, Indeterminate, None Detected, Invalid, Specimen unsatisfactory for evaluation, Weakly Positive, 2+ QC Media Lot # [id number] Lot# Expiration Date [id number] Urine 06/05/2025 4:03 PM EDT Anh Saab MD POINT OF CARE TEST ENTER/EDIT ORDERABLES Final Result * Hepatitis C Antibody with Reflex to HCV, RNA, Quantitative, Real-Time PCR (10/17/2024 3:45 PM EST) Hepatitis C Antibody Nonreactive Nonreactive [facility] Comment:Antibodies to HCV no t detected; does not exclude early acuteHCV infection. Blood Venous blood specimen / Unknown 10/17/2024 3:45 PM EST 10/17/2024 5:35 PM EST Anh Saab MD LAB BLOOD ORDERABLES Final Re sult [facility] [address] [place] [address] [phone] * HIV-1/2 Antigen and Antibodies, Fourth Generation, with Reflexes (10/17/2024 3:45 PM EST) HIV AB/AG Nonreactive Nonreactive [facility] Comment:HIV-1 p24 Ag and/or HIV-1/HIV-2 Ab not detected.A test result that is nonreactive does not exclude thepossibility of exposure to or infection with HIV-1 and/orHIV-2. Nonreactive results in this assay for individualswith prior exposure to HIV-1 and/or HIV-2 may be due toantigen and antibody levels that are below the limit ofdetection of this assay.The [employer] HIV Ag/Ab Combo assay result andsupplemental assay results should be interpreted inconjunction with the patient's clinical presentation,history and other laboratory results. If the results areinconsistent with clinical evidence, additional testing issuggested to confirm the result. Blood Venous blood specimen / Unknown 10/17/2024 3:45 PM EST 10/17/2024 5:35 PM EST us Anh Saab MD LAB BLOOD ORDERABLES Final Re sult [facility] [address] [place] [address] [phone] from Last 3 Months or Most Recently Relevant to Health Maintenance Insurance [facility] C3 Care Teams Dialysis Tech Relationship Specialty Start Date End Date Anh Saab MD [address] [place] [phone] PCP - General Family Medicine 10/17/24
--- OUTSIDE RECORDS SUMMARY | 2025-06-20 16:56 | XMS_ITS | Encounter Summary ---
Author Organization [employer] Address [address] [facility] [address] [place] [address] Care Team Providers Care Production Engineer Track Name Role Phone Anh Saab MD Primary Care Provider [phone] Encounter Details Date Type Department Care Team (Latest Contact Info) Description 06/20/2025 Travel Social History Tobacco Use Types Packs/Day Years [...] PM EST documented as of this encounter Plan of Treatment Not on file documented as of this encounter Visit Diagnoses Not on filedocumented in this encounter Additional Health Concerns Assessment Noted Time PHQ-9 Depression Total Score: 2 06/05/20 2:24 PM EDT documented as of this encounter Care Teams Production Engineer Track Relationship Specialty Start Date End Date Anh Saab MD [address] [place] [phone] PCP - General Family Medicine 10/17/24 documented as of this encounter
== END 2025-06-20 14:22 | disposition home or self-care (01) ==
LOC: HO.LNP 14:21
PROVIDERS: Visit Provider Family Medicine
DX: Z12.4 Encounter for screening for malignant neoplasm of cervix (principal); Z11.51 Encounter for screening for human papillomavirus (HPV)
CPT/HCPCS: 87626; 88175

== ENCOUNTER 2025-08-15 09:16 | Day surgery (SDC) | payer MEDICAID, SELFPAY ==
--- OUTSIDE RECORDS SUMMARY | 2025-08-10 16:31 | XMS_ITS | Clinical Summary ---
Author Organization [employer] Address [address] [facility] 7t [place] [address] Care Team Providers Care Steel Molder Name Role Phone Anh Saab MD Primary Care Provider [phone] Allergies No known active allergies Medications minoxidil (Loniten) 2.5 MG tablet Take 0.5 tablets by mouth Once per day. 4 Active GaviLyte-G 236 g solution PLEASE SEE ATTACHED FOR DETAILED DIRECTIONS 5 Active Bisacodyl EC 5 MG EC tablet TAKE 2 TABLETS BY MOUTH AT BEDTIME FOR 2 DAYS 5 Active cyanocobalamin (Vitamin B-12) 1000 MCG tablet Take 1 tablet (1,000 mcg) by mouth Once per day. 90 tablet 1 5 Active topiramate (Topamax) 50 MG tablet Take 1 tablet (50 mg) by mouth at bedtime. 90 tablet 1 5 Active naltrexone (Depade) 50 MG tablet Take 1 tablet (50 mg) by mouth Once per day. 90 tablet 1 5 Active metFORMIN XR (Glucophage-XR) 500 MG 24 hr tablet Take 1 tablet (500 mg) by mouth with evening meal. Do not crush, chew, or split. 30 tablet 11 5 04/17/20 26 Active propranolol (Inderal) 10 MG tablet TAKE 1 TABLET BY MOUTH IF NEEDED IN THE MORNING AND AT BEDTIME FOR ANXIETY. 180 tablet 1 5 Active norethindrone-e thinyl estradiol (Junel FE 10/31) 1-20 MG-MCG tablet Take 1 tablet by mouth Once per day. 28 tablet 12 5 06/05/20 26 Active buPROPion XL (Wellbutrin XL) 150 MG 24 hr tablet Take 1 tablet (150 mg) by mouth Once per day. Do not crush, chew, or split. 90 tablet 1 Active Active Problems Problem Noted Date Diagnosed Date [...] Assessment & Plan (04/07/2025 2:48 PM EDT): Denio of propranolol Rectal bleeding 10/17/2024 Assessment & Plan (10/17/2024 3:33 PM EST): Ordering lab work for and referral to GI for further evaluation. Encounters Date Type Department Care Team Description 06/28/2025 Results Follow-Up [facility] [address] [place] [address] Anh Saab MD Pap Smear, HPV High Risk with Reflex to Subtypes 06/20/2025 11:20 AM EDT Procedure Visit [facility] [address] [place] [address] Anh Saab MD Cervical cancer screening (Primary Dx) 06/20/2025 Travel 06/19/2025 Telephone [facility] [address] [place] [address] Anh Saab MD 06/05/2025 1:45 PM EDT Office Visit [facility] [address] [place] [address] Anh Saab MD Overweight (BMI 25.0-29.9) (Primary Dx); Encounter for initial prescription of contraceptive pills 06/05/2025 Travel 05/26/2025 Patient Outreach [facility] [address] [place] [address] Anh Saab MD Pre-visit Planning (SDOH screening negative and Tobacco screening negative) 05/25/2025 Telephone [facility] [address] [place] [address] Anh Saab MD chart prep from Last 3 Months Immunizations Immunization Administration [...] 06/20/2025 11:29 AM EDT Plan of Treatment Upcoming Encounters Date Type Department Care Team (Late st Contact Info) Description 08/28/2025 11:30 AM EST Office Visit [facility] [address] [place] [address] Anh Saab MD [address] [place] [address] Health Maintenance Due Date Last Done Comments Family Planning (PISQ) 2006 HPV Vaccines (1 - 3-dose series) 2006 COVID-19 Vaccine (2023-2 5 season) 2025 Influenza Vaccine (#1) 2025 Alcohol/Substance Use Screening 10/17/2025 10/17/2024 Disability Screening 04/06/2026 04/06/2025 SDOH Screening 05/26/2026 05/26/2025 Depression Screening 06/05/2026 06/05/2025, 06/05/2025 Tobacco Screening 06/20/2026 06/20/2025 Cervical Cancer Screening 06/20/2030 HPV/Cotest 06/20/2030 06/20/2025 Pap Smear 06/20/2030 06/20/2025 DTaP/Tdap/Td Vaccines (2 - T d [...] Procedure Name Priority Date/Time Associated Diagnosis Comments PAP SMEAR Routine 06/20/2025 11:40 AM EDT Cervical cancer screening HPV DNA, LOW/HIGH RISK Routine 06/20/2025 11:40 AM EDT Cervical cancer screening POCT , URINE Routine 06/05/2025 4:03 PM EDT Encounter for initial prescription of contraceptive pills HEPATITIS C AB W/REFL TO HCV RNA, QN, PCR Routine 10/17/2024 3:45 PM EST Screening due HIV 1/2 ANTIGEN/ANTIBODY, FOURTH GENERATION W/RFL Routine 10/17/2024 3:45 PM EST Screening due from Last 3 Months or Most Recently Relevant to Health Maintenance Results * HPV High Risk with Reflex to Subtypes (06/20/2025 11:40 AM EDT) HPV High Risk Negative Negative [facility] HPV Genotype 16 Negative Negative [facility] HPV Genotype 18 Negative Negative [facility] Comment:HPV testing performe d at [facility] (CLIA#[id number]), [address] [place] [address].Testing for HPV was performed using the [employer] YADIEL 6800system. The presence of HPV in the female genital tract isassociated with a number of diseases, including cervicalcarcinoma. The HPV DNA high risk pool tests for HPV 31, 33,35, 39, 45, 51, 52, 56, 58, 59, 66 and 68. The testing forHPV 16 and 18 genotypes has also been performed. A positiveresult indicates detection of nucleic acid sequences fromone or more subtypes, whereas a negative result indicatessuch sequences were not detected. Pap Vial 06/20/2025 11:4 0 AM EDT 06/20/2025 2:24 PM EDT us Anh Saab MD LAB BLOOD ORDERABLES Final Re sult [facility] [address] [place] [phone] * Pap Smear (06/20/2025 11:40 AM EDT) Swab Cervical swab / Unknown 06/20/2025 11:40 AM EDT 06/21/2025 11:19 AM EDT Narrative [facility] - 06/26/2025 1:47 PM EDT ----- ------- Name: Gabbie Reis Age/Sex: 34/F : 1990 Unit#: [id number] Attend Dr: Anh Saab MD Re06/20/25 Status: DEP REF Location: [facility] Disch: ----- ------- SPEC : [id number] RECD: 06/21/25 STATUS: ADELA HUBER NUM: [id number] KELECHI: 06/20/25-1140 [facility] DR: Anh Saab MD ENTERED: 06/21/25 SP TYPE: Pap Smr OTHR DR: ORDERED: Pap Smear Interpretation Satisfactory for evaluation. Negative for intraepithelial lesion or malignancy. Moderate inflammation. HPV High Risk: Negative HPV Genotyping 16: Negative HPV Genotyping 18: Negative Clinical Information LMP: Unknown date Previous PAP test: Unknown date/findings Other history: Cervical cancer screening Material Received ThinPrep-Cervical PAP Disclaimer As of August 03, 2024, the technical services to include automated prescreening performed by the ThinPrep Imaging System, PAP screening and HPV testing will be performed at [facility] (IA #[id number]), [address] [place] [address]. Testing for HPV was performed using the [employer] YADIEL 6800 system. The presence of HPV in the female genital tract is associated with a number of diseases, including cervical carcinoma. The HPV DNA high risk pool tests for HPV 31, 33, 35, 39, 45, 51, 52, 56, 58, 59, 66 and 68. The testing for HPV 16 and 18 genotypes has also been performed. A positive result indicates detection of nucleic acid sequences from one or more subtypes, whereas a negative result indicates such sequences were not detected. All professional services are performed by [facility] ([address] [place] [phone]; ; [facility] #[id number]). The PAP Test is a screening procedure with the inherent possibility of both false negative and false positive results. Results should be interpreted in the context of historic and current clinical findings. Reliability of the PAP Test is enhanced by performing the test on a regular repetitive basis. CONTINUED ON NEXT PAGE ----- ------- Name: Gabbie Reis Age/Sex: 34/F : 1990 Unit#: [id number] Attend Dr: Anh Saab MD Re06/20/25 Status: [facility] REF Location: HO.LNP Disch: ----- ------- SPEC : [id number] RECD: 06/21/25-111 STATUS: ADELA HUBER NUM: [id number] KELECHI: 06/20/25-1140 [facility] DR: Anh Saab MD ENTERED: 06/21/25 SP TYPE: Pap Valerie GILLESPIE DR: ORDERED: Pap Smear ----- ------- Signed (signature on file) BETZAIDA Camacho ([facility]) 06/26/25 1347 ----- ------- END OF REPORT Anh Saab MD LAB CYTOLOGY ORDERABLES Final Result Performing Organization Address [facility] de Phone Number [facility] [address] [place] [phone] * POCT Urine (06/05/2025 4:03 PM EDT) [facility] Preg Test, Ur Negative Negative, Indeterminate, None Detected, Invalid, Specimen unsatisfactory for evaluation, Weakly Positive, 2+ QC Media Lot # [id number] Lot# Expiration Date [id number] Urine 06/05/2025 4:03 PM EDT Result [facility] Anh Saab MD POINT OF CARE TEST ENTER/EDIT ORDERABLES Final Result * Hepatitis C Antibody with Reflex to HCV, RNA, Quantitative, Real-Time PCR (10/17/2024 3:45 PM EST) [facility] Hepatitis C Antibody Nonreactive Nonreactive [facility] Comment:Antibodies to HCV no t detected; does not exclude early acuteHCV infection. Blood Venous blood specimen / Unknown 10/17/2024 3:45 PM EST 10/17/2024 5:35 PM EST Anh Saab MD LAB BLOOD ORDERABLES Final Re sult Performing Organization Address [facility] Co de Phone Number [facility] [address] [place] [phone] * HIV-1/2 Antigen and Antibodies, Fourth Generation, with Reflexes (10/17/2024 3:45 PM EST) HIV AB/AG Nonreactive Nonreactive [facility] Comment:HIV-1 p24 Ag and/or HIV-1/HIV-2 Ab not detected.A test result that is nonreactive does not exclude thepossibility of exposure to or infection with HIV-1 and/orHIV-2. Nonreactive results in this assay for individualswith prior exposure to HIV-1 and/or HIV-2 may be due toantigen and antibody levels that are below the limit ofdetection of this assay.The [employer] HIV Ag/Ab Combo assay result andsupplemental assay results should be interpreted inconjunction with the patient's clinical presentation,history and other laboratory results. If the results areinconsistent with clinical evidence, additional testing issuggested to confirm the result. Blood Venous blood specimen / Unknown 10/17/2024 3:45 PM EST 10/17/2024 5:35 PM EST us Anh Saab MD LAB BLOOD ORDERABLES Final Re sult [facility] [address] [place] [phone] from Last 3 Months or Most Recently Relevant to Health Maintenance [facility] Care Teams Steel Molder Relationship Specialty Start Date End Date Anh Saab MD [address] [place] [phone] PCP - General Family Medicine 10/17/24
--- OUTSIDE RECORDS SUMMARY | 2025-08-10 16:31 | XMS_ITS | Encounter Summary ---
Author Organization [employer] Address [address] [place] [address] Care Team Providers Care Convalescent Sitter Name Role Phone Anh Saab MD Primary Care Provider [phone] Encounter Details Date Type Department Care Team ([facility] st Contact Info) Description 06/28/2025 Results Follow-Up [facility] [address] [place], [place] [phone] Anh Saab MD [address] [place], [place] [phone] Pap Smear, HPV High Risk with Reflex to Subtypes Social History Tobacco Use Types Packs/Day Years [...] as of this encounter Plan of Treatment Upcoming Encounters Date Type Department Care Team ([facility] st Contact Info) Description 08/28/2025 11:30 AM EST Office Visit [facility] [address] [place] [address] Anh Saab MD [address] [place] [address] documented as of this encounter Visit Diagnoses Not on filedocumented in this encounter Additional Health Concerns Assessment Noted Time PHQ-9 Depression Total Score: 2 06/05/20 25 2:24 PM EDT documented as of this encounter Care Teams Convalescent Sitter Relationship Specialty Start Date End Date Anh Saab MD [address] [place] [address] PCP - General Family Medicine 10/17/24 documented as of this encounter
[2025-08-11 13:29] VITALS: BMI 25.5
--- NOTE | 2025-08-14 08:49 | HO.ANESPROP2 ---
Documented by User: Magalie Mcconnell NP 08/14/25 08:49 HPI - Anesthesia Eval Consult details Narrative: 34yo F for Colonoscopy PMFSH Active Problems Active Problems: All Active Problems Hemorrhoids (Acute) Rectal bleeding (Acute) Pre-op examination (Acute) Herpes simplex (Acute) Fracture of fourth metatarsal bone of right foot (Acute) Fracture of fifth metatarsal bone of right foot (Acute) Surgical History Surgical History Hx of tonsillectomy Social History Social History Are you a primary point of care technician to a significant other at home: No Do you presently have visiting nurse or other home services: No Alcohol intake: current Alcohol intake frequency: holidays/special occasions only Patient Tobacco Use Status: Former Tobacco user Current occupational status: employed Current occupation: [employer] Gender identity: Female Meds Allergies Allergy/AdvReac Type Severity Reaction Status Date / Time No Known Allergies Allergy Verified 02/08/25 09:05 Home Medications ?Medication ?Instructions ?Recorded ?Confirmed ?Last Taken ?Type fluocinolone 0.01 % scalp oil and ea topical 08/15/21 Unknown History shower cap hydrocortisone 2.5 % topical topical 08/15/21 Unknown History ointment ketoconazole 2 % shampoo 1 appl topical 2XW 08/15/21 08/11/25 Unknown History mometasone 0.1 % topical solution topical 08/15/21 Unknown History norethindrone 1 mg-ethinyl 1 tab PO DAILY 08/15/21 08/11/25 Unknown History estradiol 20 mcg (21)-iron 75 mg (7) tablet (10/31 (28)) valacyclovir 500 mg tablet 500 mg PO BID 08/15/21 08/11/25 Unknown History bupropion HCl 150 mg 24 hr tablet, 150 mg PO DAILY 02/08/25 08/11/25 Unknown History extended release minoxidil 2.5 mg tablet 1.25 mg PO DAILY 02/08/25 08/11/25 Unknown History naltrexone 50 mg tablet 50 mg PO DAILY 08/15/25 08/15/25 Unknown History Exam Height,Weight and Vital Signs: Height 5 ft 7 in Weight 73.936 kg Assessment and Plan Assessment Anesthesia Assessment: Chart Reviewed Documented by User: Conrad Palomino MD 08/15/25 10:34 [facility] Past Medical History Patient : No Family History Family history of problems with anesthesia: No Surgical History Surgical History Hx of tonsillectomy History of Problems with Anesthesia: No Social History Social History Are you a primary point of care technician to a significant other at home: No Do you presently have visiting nurse or other home services: No Alcohol intake: current Alcohol intake frequency: holidays/special occasions only Patient Tobacco Use Status: Former Tobacco user Current occupational status: employed Current occupation: [employer] Gender identity: Female [employer] Allergies Allergy/AdvReac Type Severity Reaction Status Date / Time No Known Allergies Allergy Verified 02/08/25 09:05 Home Medications ?Medication ?Instructions ?Recorded ?Confirmed ?Last Taken ?Type fluocinolone 0.01 % scalp oil and ea topical 08/15/21 Unknown History shower cap hydrocortisone 2.5 % topical topical 08/15/21 Unknown History ointment ketoconazole 2 % shampoo 1 appl topical 2XW 08/15/21 08/11/25 Unknown History mometasone 0.1 % topical solution topical 08/15/21 Unknown History norethindrone 1 mg-ethinyl 1 tab PO DAILY 08/15/21 08/11/25 Unknown History estradiol 20 mcg (21)-iron 75 mg (7) tablet (10/31 ()) valacyclovir 500 mg tablet 500 mg PO BID 08/15/21 08/11/25 Unknown History bupropion HCl 150 mg 24 hr tablet, 150 mg PO DAILY 02/08/25 08/11/25 Unknown History extended release minoxidil 2.5 mg tablet 1.25 mg PO DAILY 02/08/25 08/11/25 Unknown History naltrexone 50 mg tablet 50 mg PO DAILY 08/15/25 08/15/25 Unknown History Exam Airway Mallampati Class: I TM Dist: >3cm Neck ROM: Full Loose/Missing/Broken Teeth: No Heart: ok Lungs: ok Assessment and Plan Assessment Anesthesia Assessment: Anesthesia Plan Discussed Final Anesthetic Review Family History of Problems with Anesthesia: No History of Problems with Anesthesia: No NPO: Yes ASA Class: II Final Preanesthetic Review: No Changes in Pt Med Stat, Meds/Allgs Chart Reviewed, Consent Obtained/Reviewed and Anes Risks/Benef Reviewed Procedure Risk: Low Anesthetic Plan Anesthetic Plan: MAC: and Agree w/ Assess. and Plan Disposition: Standard PACU
[2025-08-15 10:15] VITALS: BMI 23.6
[2025-08-15] MEDS: Lactated Ringers 1,000 ML 100 ML IVCONT (10:21)
[2025-08-15 10:23] LABS: UPreg QC Valid YES
[2025-08-15 10:29] VITALS: BP 117/73; PULSE 82; RESP 18; TEMP 36.6; O2SAT 97
--- NOTE | 2025-08-15 10:45 | MHC.SHP ---
Pre-Procedural Eval Section A - 24 Hr Update-Section A only Date of Service: 08/15/25 Section B - Complete if H&P > 30 days Chief Complaint: Hemorrhage of anus and rectum Details of Present Illness: Hx of tonsillectomy Present Medications: see Short Stay Collaborative assessment Allergies: Allergies Allergy/AdvReac Type Severity Reaction Status Date / Time No Known Allergies Allergy Verified 08/15/25 10:37 Review of Systems Review of Systems Comment: Ten point ROS negative Exam Exam Comment: Gen appear: No acute distress HEENT: no icterus Chest: No overt resp distress Abd: soft, nontender, nondistended Psych: Stable affect, answering questions appropriately Neuro: A/Ox3 noted to move all extremities spontaneously Ext: no peripheral edema Plan Diagnosis/Plan: Unchanged I have reviewed the history and physical and performed a pertinent physical examination on my patient. No changes have occurred unless specified. Time Spent With Patient Time: Total time managing care of this patient today ____ minutes.
--- NOTE | 2025-08-15 11:48 | P.OPN-COLO_ITS ---
Colonoscopy Operative Note Operative Note Date of Service: 08/15/25 Narrative: Procedure: Colonoscopy Indication: Rectal bleeding Endoscopist: Fadia Pack MD Anesthesia Provider: Annalee Guzman CRNA Anesthesia type: MAC Instrument: Olympus [id number]-[id number] Consent: Indication, risks vs benefits, and alternatives were discussed with the patient who gave written informed consent to proceed. EKG, pulse, pulse oximetry and blood pressure were monitored throughout the procedure. Please see anesthesia flowsheet. Procedure: The patient was brought to the procedure room and placed in the left lateral decubitus position. IV medications were administered by the anesthesia provider in attendance. A digital rectal exam was performed which was abnormal due to finding of hemorrhoids. A distal attachment cap was affixed to the tip of the colonoscope which was then inserted through the anus and advanced through the colon to the cecum at 80 cm,and terminal ileum. Appendiceal orifice and ileocecal valve were identified. Mucosa was carefully examined under high definition white light as the instrument was slowly withdrawn in a retrograde panoramic fashion. Retroflexion was performed in rectum. The procedure was not difficult. There were no immediate obvious complications. The quality of the prep was BBPS: 3+3+3 = adequate Withdrawal time 8 minutes. Limitations: No limitations. Findings: Mucosa: Normal to cecum and terminal ileum. Protruding lesions: * Large internal hemorrhoids without stigmata of recent bleeding. Impression: 1. Normal colon and terminal ileum mucosa 2. External and internal hemorrhoids Recommendations: - intermittent rectal bleeding is likely secondary to hemorrhoids. - commence asymptomatic colorectal cancer screening at 45 years of age
[2025-08-15 11:53] VITALS: BP 96/52; PULSE 67; RESP 15; TEMP 36.8; O2SAT 99
[2025-08-15 11:58] VITALS: BP 98/52; PULSE 67; RESP 18
[2025-08-15 12:06] VITALS: BP 107/60; PULSE 66; RESP 13; O2SAT 100
[2025-08-15 12:10] VITALS: BP 107/60; PULSE 73; RESP 15; TEMP 36.6; O2SAT 100
== END 2025-08-15 12:43 | disposition home or self-care (01) ==
PROVIDERS: Nurse Practitioner; PCP Family Medicine; Visit Provider Internal Medicine
PROC: 0DJD8ZZ Inspection of Lower Intestinal Tract, Via Natural or Artificial Opening Endoscopic (ICD-10-PCS; CPT 45378; principal; 2025-08-15 11:20)
DX: K62.5 Hemorrhage of anus and rectum (principal); K64.4 Residual hemorrhoidal skin tags; K64.8 Other hemorrhoids
CPT/HCPCS: 45378; 81025; J2003; J2250; J2704

== ENCOUNTER → 2025-08-15 09:16 | Outpatient (BNV) | payer MEDICAID, SELFPAY | PROVIDERS: PCP Family Medicine; Visit Provider Internal Medicine | DX: K62.5 Hemorrhage of anus and rectum (principal); K64.8 Other hemorrhoids | CPT/HCPCS: 45378 ==